=== PATIENT | male | born 1935 | race Caucasian/White ===

== ENCOUNTER 2017-10-10 19:07 | Inpatient (IN) | payer MEDICARE, OTHER ==
[2017-10-10] MEDS: SOD CHLORIDE 0.9% 1,000 ML IV (19:31)
[2017-10-10] MEDS: METOPROLOL 5 MG INJ IV (19:32)
[2017-10-10] MEDS: ASPIRIN 325 MG TAB PO (19:32)
[2017-10-10 19:45] LABS: ADD MAN DIFF? NO
[2017-10-10 19:47] LABS: WHITE BLOOD COUNT 8.5 10^3/ul (4.8-10.8)
[2017-10-10 19:47] LABS: BASOPHIL # 0.1 10^3/ul (0.0-0.1); BASOPHILS % 0.8 % (0.0-2.0); EOSINOPHILS # 0.3 10^3/ul (0.0-0.5); EOSINOPHILS % 3.9 % (0.0-7.0); HEMATOCRIT 41.8 % (42.0-52.0); HEMOGLOBIN 14.9 g/dl (14.0-18.0); LYMPHOCYTES # 1.6 10^3/ul (0.8-2.9); LYMPHOCYTES % 19.3 % (15.0-51.0); MEAN CORPUSCULAR HGB CONC 35.6 g/dl (32.0-37.0); MEAN CORPUSCULAR VOLUME 89.7 fl (82.0-101.0); MEAN PLATELET VOLUME 9.7 fl (7.4-10.4); MONOCYTE # 0.5 10^3/ul (0.3-0.9); MONOCYTES % 5.7 % (0.0-11.0); NEUTROPHIL # 5.9 10^3/ul (1.6-7.5); NEUTROPHILS % 70.1 % (39.0-77.0); PLATELET COUNT 245 10^3/UL (140-415); RED BLOOD COUNT 4.66 10^6/ul (4.70-6.10)
[2017-10-10] MEDS: DILTIAZEM 25 MG INJ IV (19:47)
[2017-10-10 20:05] LABS: INR 0.83; PROTIME 11.5 Sec (11.9-14.9); PT RATIO 0.9
[2017-10-10 20:09] LABS: ANION GAP 16 (8-16); BLOOD UREA NITROGEN 19 mg/dl (7-20); CALCIUM 9.4 mg/dl (8.4-10.2); CARBON DIOXIDE 31 mmol/L (21-31); CHLORIDE 102 mmol/L (97-110); CHOLESTEROL 251 mg/dl (100-200); CREATININE 1.55 mg/dl (0.61-1.24); GLUCOSE 121 mg/dl (70-220); HDL CHOLESTEROL 62 mg/dl (31-75); LDL CHOLESTEROL,CALCULATED 160 mg/dl; POTASSIUM 3.3 mmol/L (3.5-5.1); SODIUM 146 mmol/L (135-144); TRIGLYCERIDES 146 mg/dl (0-149)
[2017-10-10 20:16] LABS: ADD UMIC NO; UR ASCORBIC ACID NEGATIVE (NEGATIVE); UR BILIRUBIN (Dip) NEGATIVE (NEGATIVE); UR BLOOD (Dip) NEGATIVE (NEGATIVE); UR CLARITY CLEAR (CLEAR); UR COLOR STRAW (YELLOW); UR GLUCOSE (Dip) 1+ mg/dL (NEGATIVE); UR KETONES (Dip) NEGATIVE (NEGATIVE); UR LEUKOCYTE ESTERASE (Dip) NEGATIVE Leu/ul (NEGATIVE); UR NITRITE (Dip) NEGATIVE (NEGATIVE); UR SPECIFIC GRAVITY (Dip) 1.009 (1.003-1.030); UR TOTAL PROTEIN (Dip) NEGATIVE (NEGATIVE); UR UROBILINOGEN (Dip) NEGATIVE (NEGATIVE)
[2017-10-10 20:18] LABS: HEMOGLOBIN A1C 5.2 % (0-5.9)
[2017-10-10 20:22] LABS: PARTIAL THROMBOPLASTIN TIME 28.8 Sec (25.0-35.0)
[2017-10-10 20:24] LABS: TROPONIN-I < 0.012 ng/ml (0.00-0.12)
[2017-10-10 20:31] LABS: AMPHETAMINE/METHAMPHETAMINE Negative (NEGATIVE); BARBITURATES Negative (NEGATIVE); BENZODIAZEPINES Negative (NEGATIVE); CANNABINOIDS Negative (NEGATIVE); COCAINE Negative (NEGATIVE); OPIATES Negative (NEGATIVE)
[2017-10-10] MEDS: POTASSIUM CHLORIDE (SR) 20 MEQ TAB PO (21:05)
[2017-10-10] MEDS ORDERED: LABETALOL HCL 20MG INJ IV (22:00)
[2017-10-10] MEDS: niCARdipine-NS 0.1MG/ML DRIP 200 ML IV (22:07)
[2017-10-10] MEDS: LABETALOL HCL 20MG INJ IV (22:39)
[2017-10-11] MEDS ORDERED: ONDANSETRON 4 MG INJ IV
[2017-10-11] MEDS ORDERED: DOCUSATE SODIUM 100 MG CAP PO
[2017-10-11] MEDS ORDERED: ACETAMINOPHEN 325 MG TAB PO
[2017-10-11] MEDS: SOD CHLORIDE 0.9% 1,000 ML IV (00:23)
[2017-10-11] MEDS: POTASSIUM CHLORIDE 100 ML IVPB ×2 (00:35→03:15)
[2017-10-11] MEDS: niCARdipine 25 MG in SOD CHLORIDE 0.9% 240 ML IV (01:01)
[2017-10-11] MEDS: PANTOPRAZOLE 40 MG INJ IV (06:00)
[2017-10-11] MEDS ORDERED: LABETALOL HCL 20MG INJ IV (09:30)
[2017-10-11] MEDS ORDERED: HYDROCODONE/APAP (5/325) TAB PO (10:00)
[2017-10-11 10:33] LABS: ADD MAN DIFF? NO
[2017-10-11 10:35] LABS: BASOPHIL # 0.1 10^3/ul (0.0-0.1); EOSINOPHILS # 0.3 10^3/ul (0.0-0.5); HEMATOCRIT 36.2 % (42.0-52.0); HEMOGLOBIN 12.8 g/dl (14.0-18.0); LYMPHOCYTES # 1.3 10^3/ul (0.8-2.9); MEAN CORPUSCULAR HEMOGLOBIN 32.2 pg (29.0-33.0); MEAN CORPUSCULAR HGB CONC 35.4 g/dl (32.0-37.0); MEAN CORPUSCULAR VOLUME 91.2 fl (82.0-101.0); MEAN PLATELET VOLUME 9.9 fl (7.4-10.4); MONOCYTE # 0.4 10^3/ul (0.3-0.9); MONOCYTES % 5.9 % (0.0-11.0); NEUTROPHIL # 4.3 10^3/ul (1.6-7.5); NEUTROPHILS % 68.8 % (39.0-77.0); PLATELET COUNT 208 10^3/UL (140-415); RED BLOOD COUNT 3.97 10^6/ul (4.70-6.10); RED CELL DISTRIBUTION WIDTH 13.2 % (11.5-14.5)
[2017-10-11 10:35] LABS: WHITE BLOOD COUNT 6.3 10^3/ul (4.8-10.8)
[2017-10-11] MEDS: DEXTROSE 5%-0.45% NACL 1,000 ML IV (10:46)
[2017-10-11 10:58] LABS: ALANINE AMINOTRANSFERASE 21 IU/L (13-69); ALBUMIN/GLOBULIN RATIO 1.29; ALKALINE PHOSPHATASE 48 IU/L (42-121); ANION GAP 16 (8-16); ASPARTATE AMINO TRANSFERASE 21 IU/L (15-46); BILIRUBIN,INDIRECT 0.5 mg/dl (0-1.1); BILIRUBIN,TOTAL 0.5 mg/dl (0.2-1.3); BLOOD UREA NITROGEN 14 mg/dl (7-20); CALCIUM 8.5 mg/dl (8.4-10.2); CARBON DIOXIDE 29 mmol/L (21-31); CHLORIDE 104 mmol/L (97-110); CREATININE 1.27 mg/dl (0.61-1.24); GLUCOSE 154 mg/dl (70-220); POTASSIUM 3.4 mmol/L (3.5-5.1); SODIUM 146 mmol/L (135-144); TOTAL PROTEIN 7.1 g/dl (6.1-8.1)
[2017-10-11] MEDS: AMLODIPINE 10 MG TAB PO (11:30)
[2017-10-11] MEDS: POTASSIUM CHLORIDE (SR) 10 MEQ TAB PO (14:25)
[2017-10-12 05:39] LABS: ADD MAN DIFF? NO
[2017-10-12 05:44] LABS: WHITE BLOOD COUNT 6.6 10^3/ul (4.8-10.8)
[2017-10-12 05:44] LABS: BASOPHIL # 0.1 10^3/ul (0.0-0.1); BASOPHILS % 0.8 % (0.0-2.0); EOSINOPHILS # 0.3 10^3/ul (0.0-0.5); EOSINOPHILS % 4.5 % (0.0-7.0); HEMATOCRIT 36.1 % (42.0-52.0); HEMOGLOBIN 12.9 g/dl (14.0-18.0); LYMPHOCYTES # 1.9 10^3/ul (0.8-2.9); LYMPHOCYTES % 28.3 % (15.0-51.0); MEAN CORPUSCULAR HEMOGLOBIN 32.6 pg (29.0-33.0); MEAN CORPUSCULAR HGB CONC 35.7 g/dl (32.0-37.0); MEAN CORPUSCULAR VOLUME 91.2 fl (82.0-101.0); MEAN PLATELET VOLUME 9.8 fl (7.4-10.4); MONOCYTE # 0.4 10^3/ul (0.3-0.9); MONOCYTES % 6.2 % (0.0-11.0); NEUTROPHILS % 59.9 % (39.0-77.0); PLATELET COUNT 188 10^3/UL (140-415); RED BLOOD COUNT 3.96 10^6/ul (4.70-6.10); RED CELL DISTRIBUTION WIDTH 13.2 % (11.5-14.5)
[2017-10-12 05:57] LABS: ANION GAP 14 (8-16); BLOOD UREA NITROGEN 18 mg/dl (7-20); CALCIUM 8.8 mg/dl (8.4-10.2); CARBON DIOXIDE 30 mmol/L (21-31); CHLORIDE 107 mmol/L (97-110); CREATININE 1.48 mg/dl (0.61-1.24); GLUCOSE 111 mg/dl (70-220); MAGNESIUM 2.2 mg/dl (1.7-2.5); PHOSPHORUS 2.7 mg/dl (2.5-4.9); POTASSIUM 3.3 mmol/L (3.5-5.1); SODIUM 148 mmol/L (135-144)
[2017-10-12] MEDS: PANTOPRAZOLE 40 MG INJ IV (06:42)
[2017-10-12] MEDS ORDERED: LOSARTAN 50 MG TAB PO (09:00)
[2017-10-12] MEDS: AMLODIPINE 10 MG TAB PO (09:18)
[2017-10-12] MEDS: POTASSIUM CHLORIDE (SR) 20 MEQ TAB PO (11:37)
[2017-10-12] MEDS: BISACODYL (EC) 5 MG TAB PO (16:45)
[2017-10-13 01:39] LABS: ADD UMIC NO; UR ASCORBIC ACID NEGATIVE (NEGATIVE); UR BILIRUBIN (Dip) NEGATIVE (NEGATIVE); UR BLOOD (Dip) NEGATIVE (NEGATIVE); UR CLARITY CLEAR (CLEAR); UR COLOR STRAW (YELLOW); UR GLUCOSE (Dip) 1+ mg/dL (NEGATIVE); UR KETONES (Dip) NEGATIVE (NEGATIVE); UR LEUKOCYTE ESTERASE (Dip) NEGATIVE Leu/ul (NEGATIVE); UR NITRITE (Dip) NEGATIVE (NEGATIVE); UR TOTAL PROTEIN (Dip) NEGATIVE (NEGATIVE); UR UROBILINOGEN (Dip) NEGATIVE (NEGATIVE)
[2017-10-13 01:49] LABS: SODIUM,URINE RANDOM 149 mmol/L (30-90)
[2017-10-13 01:49] LABS: CREATININE,URINE RANDOM 33.21 mg/dl (20-370)
[2017-10-13] MEDS: PANTOPRAZOLE (EC) 40 MG TAB PO (05:27)
[2017-10-13] MEDS: BISACODYL (EC) 5 MG TAB PO (05:40)
[2017-10-13 08:48] LABS: ADD MAN DIFF? NO
[2017-10-13] MEDS: AMLODIPINE 10 MG TAB PO (08:54)
[2017-10-13 08:59] LABS: WHITE BLOOD COUNT 7.7 10^3/ul (4.8-10.8)
[2017-10-13 08:59] LABS: BASOPHIL # 0.1 10^3/ul (0.0-0.1); BASOPHILS % 0.8 % (0.0-2.0); EOSINOPHILS # 0.3 10^3/ul (0.0-0.5); EOSINOPHILS % 4.4 % (0.0-7.0); HEMATOCRIT 40.3 % (42.0-52.0); HEMOGLOBIN 14.1 g/dl (14.0-18.0); LYMPHOCYTES # 1.7 10^3/ul (0.8-2.9); LYMPHOCYTES % 22.1 % (15.0-51.0); MEAN CORPUSCULAR HEMOGLOBIN 31.7 pg (29.0-33.0); MEAN CORPUSCULAR VOLUME 90.6 fl (82.0-101.0); MEAN PLATELET VOLUME 9.7 fl (7.4-10.4); MONOCYTE # 0.5 10^3/ul (0.3-0.9); MONOCYTES % 6.6 % (0.0-11.0); NEUTROPHIL # 5.1 10^3/ul (1.6-7.5); NEUTROPHILS % 65.8 % (39.0-77.0); PLATELET COUNT 209 10^3/UL (140-415); RED BLOOD COUNT 4.45 10^6/ul (4.70-6.10); RED CELL DISTRIBUTION WIDTH 12.9 % (11.5-14.5)
[2017-10-13 09:20] LABS: ANION GAP 18 (8-16); BLOOD UREA NITROGEN 17 mg/dl (7-20); CALCIUM 8.9 mg/dl (8.4-10.2); CARBON DIOXIDE 29 mmol/L (21-31); CHLORIDE 106 mmol/L (97-110); GLUCOSE 99 mg/dl (70-220); PHOSPHORUS 2.6 mg/dl (2.5-4.9); POTASSIUM 3.5 mmol/L (3.5-5.1); SODIUM 149 mmol/L (135-144)
[2017-10-13 09:37] LABS: MAGNESIUM 2.1 mg/dl (1.7-2.5)
[2017-10-13] MEDS: LOSARTAN 50 MG TAB PO (11:39)
[2017-10-13 21:08] LABS: PTH CALCIUM 9.2 mg/dL (8.6-10.3)
[2017-10-14] MEDS: PANTOPRAZOLE (EC) 40 MG TAB PO (06:02)
[2017-10-14 08:11] LABS: ANION GAP 14 (8-16); BLOOD UREA NITROGEN 21 mg/dl (7-20); CALCIUM 8.7 mg/dl (8.4-10.2); CARBON DIOXIDE 30 mmol/L (21-31); CHLORIDE 106 mmol/L (97-110); CREATININE 1.26 mg/dl (0.61-1.24); GLUCOSE 102 mg/dl (70-220); MAGNESIUM 2.2 mg/dl (1.7-2.5); POTASSIUM 3.3 mmol/L (3.5-5.1); SODIUM 147 mmol/L (135-144)
[2017-10-14] MEDS: LOSARTAN 50 MG TAB PO (09:16)
[2017-10-14 09:17] LABS: PTH INTACT 104 pg/mL (14-64)
[2017-10-14] MEDS: AMLODIPINE 10 MG TAB PO (09:17)
[2017-10-14] MEDS: POTASSIUM CHLORIDE (SR) 20 MEQ TAB PO ×2 (10:17→15:07)
[2017-10-14 14:13] LABS: CREATININE, RANDOM URINE 42 mg/dL (20-370); MICROALBUMIN 1.5 mg/dL; MICROALBUMIN/CREATININE RATIO 36 (<30)
== END 2017-10-14 17:10 | DRG 65 ==
LOC: ICU 22:08 → E/R 19:07 → MS4 10-12 15:58
DX: I62.9 Nontraumatic intracranial hemorrhage, unspecified (principal); G81.91 Hemiplegia, unspecified affecting right dominant side; N17.9 Acute kidney failure, unspecified; I16.1 Hypertensive emergency; E87.1 Hypo-osmolality and hyponatremia; E87.0 Hyperosmolality and hypernatremia; M1A.9XX0 Chronic gout, unspecified, without tophus (tophi); I12.9 Hypertensive chronic kidney disease with stage 1 through stage 4 chronic kidney disease, or unspecified chronic kidney disease; N18.9 Chronic kidney disease, unspecified; E87.6 Hypokalemia; Z91.14 Patient's other noncompliance with medication regimen; Z87.891 Personal history of nicotine dependence
CPT/HCPCS: 36415; 70450; 71045; 76775; 80048; 80053; 80061; 80307; 81003; 82043; 83036; 83735; 83970; 84100; 84155; 84300; 84484; 85025; 85610; 85730; 87081; 92507; 92523; 92610; 93005; 93306; 96365; 96375; 96376; 97110; 97116; 97162; 97165; 97530; 99291-25

== ENCOUNTER 2017-10-14 17:22 | Inpatient (IN) | payer MEDICARE, OTHER ==
[2017-10-14] MEDS ORDERED: DOCUSATE SODIUM 100 MG CAP PO (19:19)
[2017-10-14] MEDS ORDERED: ACETAMINOPHEN 325 MG TAB PO (19:19)
[2017-10-14] MEDS ORDERED: ONDANSETRON 4 MG INJ IV (19:19)
[2017-10-14] MEDS ORDERED: HYDROCODONE/APAP (5/325) TAB PO (19:19)
[2017-10-14] MEDS ORDERED: BISACODYL (EC) 5 MG TAB PO (19:19)
[2017-10-14] MEDS ORDERED: MAGNESIUM HYDROXIDE 30ML CUP PO (22:00)
[2017-10-14] MEDS ORDERED: LACTULOSE 30ML CUP PO (22:00)
[2017-10-14] MEDS: SENNA TAB PO (22:00)
[2017-10-14] MEDS: DOCUSATE SODIUM 100 MG CAP PO (22:00)
[2017-10-14] MEDS ORDERED: BISACODYL 10 MG SUPP PR (22:00)
[2017-10-14 23:25] LABS: ADD UMIC NO; UR ASCORBIC ACID NEGATIVE (NEGATIVE); UR BILIRUBIN (Dip) NEGATIVE (NEGATIVE); UR BLOOD (Dip) NEGATIVE (NEGATIVE); UR CLARITY CLEAR (CLEAR); UR COLOR YELLOW (YELLOW); UR GLUCOSE (Dip) 1+ mg/dL (NEGATIVE); UR KETONES (Dip) NEGATIVE (NEGATIVE); UR LEUKOCYTE ESTERASE (Dip) NEGATIVE Leu/ul (NEGATIVE); UR NITRITE (Dip) NEGATIVE (NEGATIVE); UR SPECIFIC GRAVITY (Dip) 1.016 (1.003-1.030); UR TOTAL PROTEIN (Dip) NEGATIVE (NEGATIVE); UR UROBILINOGEN (Dip) NEGATIVE (NEGATIVE)
[2017-10-15] MEDS: PANTOPRAZOLE (EC) 40 MG TAB PO (06:17)
[2017-10-15 07:09] LABS: ADD MAN DIFF? NO
[2017-10-15 07:13] LABS: WHITE BLOOD COUNT 7.6 10^3/ul (4.8-10.8)
[2017-10-15 07:13] LABS: BASOPHIL # 0.1 10^3/ul (0.0-0.1); BASOPHILS % 0.8 % (0.0-2.0); EOSINOPHILS # 0.4 10^3/ul (0.0-0.5); HEMATOCRIT 37.6 % (42.0-52.0); HEMOGLOBIN 13.3 g/dl (14.0-18.0); LYMPHOCYTES # 1.8 10^3/ul (0.8-2.9); LYMPHOCYTES % 23.8 % (15.0-51.0); MEAN CORPUSCULAR HGB CONC 35.4 g/dl (32.0-37.0); MEAN CORPUSCULAR VOLUME 90.6 fl (82.0-101.0); MEAN PLATELET VOLUME 9.9 fl (7.4-10.4); MONOCYTE # 0.4 10^3/ul (0.3-0.9); MONOCYTES % 5.6 % (0.0-11.0); NEUTROPHIL # 4.9 10^3/ul (1.6-7.5); NEUTROPHILS % 64.5 % (39.0-77.0); PLATELET COUNT 208 10^3/UL (140-415); RED BLOOD COUNT 4.15 10^6/ul (4.70-6.10)
[2017-10-15 07:53] LABS: ALANINE AMINOTRANSFERASE 18 IU/L (13-69); ALBUMIN 4.1 g/dl (3.3-4.9); ALBUMIN/GLOBULIN RATIO 1.36; ALKALINE PHOSPHATASE 47 IU/L (42-121); ANION GAP 13 (8-16); ASPARTATE AMINO TRANSFERASE 19 IU/L (15-46); BILIRUBIN,INDIRECT 0.6 mg/dl (0-1.1); BILIRUBIN,TOTAL 0.6 mg/dl (0.2-1.3); BLOOD UREA NITROGEN 24 mg/dl (7-20); CALCIUM 8.6 mg/dl (8.4-10.2); CARBON DIOXIDE 29 mmol/L (21-31); CHLORIDE 108 mmol/L (97-110); GLUCOSE 96 mg/dl (70-220); POTASSIUM 3.9 mmol/L (3.5-5.1); SODIUM 146 mmol/L (135-144); TOTAL PROTEIN 7.1 g/dl (6.1-8.1)
[2017-10-15] MEDS: DOCUSATE SODIUM 100 MG CAP PO ×2 (10:14→20:24)
[2017-10-15] MEDS: AMLODIPINE 10 MG TAB PO (10:14)
[2017-10-15] MEDS: LOSARTAN 50 MG TAB PO (10:15)
[2017-10-15] MEDS: NEOMYC/POLYMYX/BACIT 30 GM OINT TOP ×2 (17:58→20:21)
[2017-10-15] MEDS: SENNA TAB PO (20:24)
[2017-10-16] MEDS: PANTOPRAZOLE (EC) 40 MG TAB PO (06:11)
[2017-10-16] MEDS: AMLODIPINE 10 MG TAB PO (08:19)
[2017-10-16] MEDS: LOSARTAN 50 MG TAB PO (08:19)
[2017-10-16] MEDS: NEOMYC/POLYMYX/BACIT 30 GM OINT TOP ×2 (08:19→20:47)
[2017-10-16] MEDS: DOCUSATE SODIUM 100 MG CAP PO ×2 (08:19→20:47)
[2017-10-16] MEDS: SENNA TAB PO (20:47)
[2017-10-17] MEDS: PANTOPRAZOLE (EC) 40 MG TAB PO (06:39)
[2017-10-17] MEDS: AMLODIPINE 10 MG TAB PO (08:33)
[2017-10-17] MEDS: DOCUSATE SODIUM 100 MG CAP PO ×2 (08:34→21:00)
[2017-10-17] MEDS: LOSARTAN 50 MG TAB PO (08:34)
[2017-10-17] MEDS: NEOMYC/POLYMYX/BACIT 30 GM OINT TOP ×2 (08:34→20:46)
[2017-10-17] MEDS: SENNA TAB PO (21:00)
[2017-10-18] MEDS: PANTOPRAZOLE (EC) 40 MG TAB PO (06:00)
[2017-10-18 07:38] LABS: ADD MAN DIFF? NO
[2017-10-18 07:46] LABS: BASOPHILS % 0.6 % (0.0-2.0); EOSINOPHILS # 0.3 10^3/ul (0.0-0.5); EOSINOPHILS % 4.9 % (0.0-7.0); HEMATOCRIT 37.9 % (42.0-52.0); HEMOGLOBIN 13.3 g/dl (14.0-18.0); LYMPHOCYTES # 1.7 10^3/ul (0.8-2.9); LYMPHOCYTES % 25.1 % (15.0-51.0); MEAN CORPUSCULAR HEMOGLOBIN 31.4 pg (29.0-33.0); MEAN CORPUSCULAR HGB CONC 35.1 g/dl (32.0-37.0); MEAN CORPUSCULAR VOLUME 89.6 fl (82.0-101.0); MEAN PLATELET VOLUME 9.9 fl (7.4-10.4); MONOCYTE # 0.4 10^3/ul (0.3-0.9); MONOCYTES % 5.9 % (0.0-11.0); NEUTROPHIL # 4.4 10^3/ul (1.6-7.5); NEUTROPHILS % 63.4 % (39.0-77.0); PLATELET COUNT 210 10^3/UL (140-415); RED BLOOD COUNT 4.23 10^6/ul (4.70-6.10); RED CELL DISTRIBUTION WIDTH 13.2 % (11.5-14.5)
[2017-10-18 07:46] LABS: WHITE BLOOD COUNT 6.9 10^3/ul (4.8-10.8)
[2017-10-18] MEDS: AMLODIPINE 10 MG TAB PO (07:55)
[2017-10-18] MEDS: NEOMYC/POLYMYX/BACIT 30 GM OINT TOP ×2 (07:56→20:56)
[2017-10-18] MEDS: LOSARTAN 50 MG TAB PO (07:56)
[2017-10-18] MEDS: DOCUSATE SODIUM 100 MG CAP PO ×2 (07:59→21:00)
[2017-10-18 08:14] LABS: ANION GAP 14 (8-16); BLOOD UREA NITROGEN 20 mg/dl (7-20); CALCIUM 8.7 mg/dl (8.4-10.2); CARBON DIOXIDE 28 mmol/L (21-31); CHLORIDE 108 mmol/L (97-110); CREATININE 1.33 mg/dl (0.61-1.24); GLUCOSE 88 mg/dl (70-220); MAGNESIUM 2.2 mg/dl (1.7-2.5); PHOSPHORUS 3.1 mg/dl (2.5-4.9); POTASSIUM 3.3 mmol/L (3.5-5.1); SODIUM 147 mmol/L (135-144)
[2017-10-18] MEDS: POTASSIUM CHLORIDE (SR) 20 MEQ TAB PO (09:36)
[2017-10-18] MEDS: SENNA TAB PO (21:00)
[2017-10-19] MEDS: PANTOPRAZOLE (EC) 40 MG TAB PO (05:31)
[2017-10-19] MEDS: AMLODIPINE 10 MG TAB PO (08:23)
[2017-10-19] MEDS: LOSARTAN 50 MG TAB PO (08:23)
[2017-10-19] MEDS: DOCUSATE SODIUM 100 MG CAP PO ×2 (08:26→20:54)
[2017-10-19] MEDS: NEOMYC/POLYMYX/BACIT 30 GM OINT TOP ×2 (08:26→20:55)
[2017-10-19 10:04] LABS: ANION GAP 17 (8-16); BLOOD UREA NITROGEN 20 mg/dl (7-20); CALCIUM 9.1 mg/dl (8.4-10.2); CARBON DIOXIDE 30 mmol/L (21-31); CHLORIDE 104 mmol/L (97-110); CREATININE 1.35 mg/dl (0.61-1.24); GLUCOSE 114 mg/dl (70-220); POTASSIUM 3.7 mmol/L (3.5-5.1); SODIUM 147 mmol/L (135-144)
[2017-10-19] MEDS: LIDOCAINE 5% PATCH TD (10:38)
[2017-10-19] MEDS: SENNA TAB PO (20:54)
[2017-10-20] MEDS: PANTOPRAZOLE (EC) 40 MG TAB PO (06:12)
[2017-10-20 07:05] LABS: ANION GAP 12 (8-16); BLOOD UREA NITROGEN 20 mg/dl (7-20); CALCIUM 8.9 mg/dl (8.4-10.2); CARBON DIOXIDE 32 mmol/L (21-31); CHLORIDE 106 mmol/L (97-110); CREATININE 1.23 mg/dl (0.61-1.24); GLUCOSE 89 mg/dl (70-220); POTASSIUM 3.4 mmol/L (3.5-5.1); SODIUM 147 mmol/L (135-144)
[2017-10-20] MEDS: LIDOCAINE 5% PATCH TD (08:03)
[2017-10-20] MEDS: LOSARTAN 50 MG TAB PO (08:04)
[2017-10-20] MEDS: AMLODIPINE 10 MG TAB PO (08:04)
[2017-10-20] MEDS: NEOMYC/POLYMYX/BACIT 30 GM OINT TOP ×2 (08:05→21:00)
[2017-10-20] MEDS: DOCUSATE SODIUM 100 MG CAP PO ×2 (08:05→21:00)
[2017-10-20 10:36] LABS: MAGNESIUM 2.1 mg/dl (1.7-2.5)
[2017-10-20] MEDS: POTASSIUM CHLORIDE (SR) 20 MEQ TAB PO (11:13)
[2017-10-20] MEDS: SENNA TAB PO (21:00)
[2017-10-21] MEDS: PANTOPRAZOLE (EC) 40 MG TAB PO (06:35)
[2017-10-21] MEDS: NEOMYC/POLYMYX/BACIT 30 GM OINT TOP ×2 (09:00→21:00)
[2017-10-21] MEDS: DOCUSATE SODIUM 100 MG CAP PO ×2 (09:00→21:00)
[2017-10-21] MEDS: LOSARTAN 50 MG TAB PO (09:02)
[2017-10-21] MEDS: AMLODIPINE 10 MG TAB PO (09:05)
[2017-10-21] MEDS: LIDOCAINE 5% PATCH TD (09:10)
[2017-10-21] MEDS: SENNA TAB PO (21:00)
[2017-10-22] MEDS: PANTOPRAZOLE (EC) 40 MG TAB PO (06:52)
[2017-10-22] MEDS: DOCUSATE SODIUM 100 MG CAP PO ×2 (09:00→21:00)
[2017-10-22] MEDS: LIDOCAINE 5% PATCH TD ×2 (09:00→09:25)
[2017-10-22] MEDS: AMLODIPINE 10 MG TAB PO (09:17)
[2017-10-22] MEDS: LOSARTAN 50 MG TAB PO (09:19)
[2017-10-22] MEDS: NEOMYC/POLYMYX/BACIT 30 GM OINT TOP (09:24)
[2017-10-22] MEDS: SENNA TAB PO (21:00)
[2017-10-23] MEDS: PANTOPRAZOLE (EC) 40 MG TAB PO (06:44)
[2017-10-23] MEDS: LOSARTAN 50 MG TAB PO (08:52)
[2017-10-23] MEDS: AMLODIPINE 10 MG TAB PO (08:52)
[2017-10-23] MEDS: DOCUSATE SODIUM 100 MG CAP PO ×2 (08:56→20:57)
[2017-10-23] MEDS: LIDOCAINE 5% PATCH TD (08:57)
[2017-10-23] MEDS: POTASSIUM CHLORIDE (SR) 20 MEQ TAB PO (12:13)
[2017-10-23] MEDS: ATORVASTATIN 10 MG TAB PO (20:49)
[2017-10-23] MEDS: SENNA TAB PO (20:57)
[2017-10-24] MEDS: PANTOPRAZOLE (EC) 40 MG TAB PO (06:54)
[2017-10-24 07:41] LABS: ANION GAP 15 (8-16); BLOOD UREA NITROGEN 18 mg/dl (7-20); CALCIUM 8.8 mg/dl (8.4-10.2); CARBON DIOXIDE 30 mmol/L (21-31); CHLORIDE 107 mmol/L (97-110); CREATININE 1.21 mg/dl (0.61-1.24); GLUCOSE 100 mg/dl (70-220); POTASSIUM 3.3 mmol/L (3.5-5.1); SODIUM 149 mmol/L (135-144)
[2017-10-24] MEDS: AMLODIPINE 10 MG TAB PO (08:16)
[2017-10-24] MEDS: LOSARTAN 50 MG TAB PO (08:17)
[2017-10-24] MEDS: LIDOCAINE 5% PATCH TD (08:18)
[2017-10-24] MEDS: DOCUSATE SODIUM 100 MG CAP PO ×2 (08:18→20:24)
[2017-10-24] MEDS: POTASSIUM CHLORIDE (SR) 20 MEQ TAB PO ×2 (12:22→20:23)
[2017-10-24] MEDS: ATORVASTATIN 10 MG TAB PO (20:22)
[2017-10-24] MEDS: SENNA TAB PO (20:24)
[2017-10-25] MEDS: PANTOPRAZOLE (EC) 40 MG TAB PO (06:24)
[2017-10-25 07:47] LABS: ANION GAP 16 (8-16); BLOOD UREA NITROGEN 17 mg/dl (7-20); CALCIUM 8.7 mg/dl (8.4-10.2); CARBON DIOXIDE 28 mmol/L (21-31); CHLORIDE 108 mmol/L (97-110); CREATININE 1.29 mg/dl (0.61-1.24); GLUCOSE 100 mg/dl (70-220); POTASSIUM 3.8 mmol/L (3.5-5.1); SODIUM 148 mmol/L (135-144)
[2017-10-25] MEDS: LIDOCAINE 5% PATCH TD (09:00)
[2017-10-25] MEDS: AMLODIPINE 10 MG TAB PO (09:10)
[2017-10-25] MEDS: POTASSIUM CHLORIDE (SR) 20 MEQ TAB PO (09:11)
[2017-10-25] MEDS: DOCUSATE SODIUM 100 MG CAP PO ×2 (09:11→21:00)
[2017-10-25] MEDS: LOSARTAN 50 MG TAB PO (09:11)
[2017-10-25] MEDS ORDERED: LIDOCAINE 5% PATCH TD (17:30)
[2017-10-25] MEDS: ATORVASTATIN 10 MG TAB PO (20:42)
[2017-10-25] MEDS: SENNA TAB PO (21:00)
[2017-10-26] MEDS: PANTOPRAZOLE (EC) 40 MG TAB PO (06:36)
[2017-10-26] MEDS: DOCUSATE SODIUM 100 MG CAP PO ×2 (09:00→20:57)
[2017-10-26] MEDS: AMLODIPINE 10 MG TAB PO (09:06)
[2017-10-26] MEDS: LOSARTAN 50 MG TAB PO (09:07)
[2017-10-26] MEDS: SENNA TAB PO (20:57)
[2017-10-26] MEDS: ATORVASTATIN 10 MG TAB PO (20:58)
[2017-10-27] MEDS: PANTOPRAZOLE (EC) 40 MG TAB PO (06:06)
[2017-10-27] MEDS: AMLODIPINE 10 MG TAB PO (09:26)
[2017-10-27] MEDS: DOCUSATE SODIUM 100 MG CAP PO (09:27)
[2017-10-27] MEDS: LOSARTAN 50 MG TAB PO (09:27)
== END 2017-10-27 13:10 | DRG 57 ==
LOC: VRC 10-26 15:49
PROC: F07Z9FZ Gait Training/Functional Ambulation Treatment using Assistive, Adaptive, Supportive or Protective Equipment (ICD-10-PCS; principal; 2017-10-14)
PROC: F07Z8FZ Transfer Training Treatment using Assistive, Adaptive, Supportive or Protective Equipment (ICD-10-PCS; 2017-10-14)
PROC: F07Z5FZ Bed Mobility Treatment using Assistive, Adaptive, Supportive or Protective Equipment (ICD-10-PCS; 2017-10-14)
PROC: F08Z2FZ Grooming/Personal Hygiene Treatment using Assistive, Adaptive, Supportive or Protective Equipment (ICD-10-PCS; 2017-10-14)
PROC: F08Z0FZ Bathing/Showering Techniques Treatment using Assistive, Adaptive, Supportive or Protective Equipment (ICD-10-PCS; 2017-10-14)
PROC: F08Z1FZ Dressing Techniques Treatment using Assistive, Adaptive, Supportive or Protective Equipment (ICD-10-PCS; 2017-10-14)
DX: I69.351 Hemiplegia and hemiparesis following cerebral infarction affecting right dominant side (principal); N17.9 Acute kidney failure, unspecified; E87.0 Hyperosmolality and hypernatremia; I69.322 Dysarthria following cerebral infarction; I12.9 Hypertensive chronic kidney disease with stage 1 through stage 4 chronic kidney disease, or unspecified chronic kidney disease; N18.9 Chronic kidney disease, unspecified; D64.9 Anemia, unspecified; M10.9 Gout, unspecified; E87.6 Hypokalemia; F06.31 Mood disorder due to known physiological condition with depressive features; Z87.891 Personal history of nicotine dependence
CPT/HCPCS: 80048; 80053; 81003; 83735; 84100; 85025; 87081; 87086; 92507; 92610; 97110; 97112; 97116; 97163; 97166; 97530; 97535; 97542